=== PATIENT | female | born 1995 | race African-American/Black ===

== ENCOUNTER 2016-12-13 01:12 | Emergency (ER) | payer MEDICAID ==
[~2016-12-13 01:12] MED LIST: FERRCAP6 PO; IBUP600 PO; PREN1CAP17 PO
[2016-12-13 01:14] VITALS: BP 124/77; PULSE 74; RESP 16; TEMP 98.8; O2SAT 100
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
[2016-12-13 02:12] LABS: AUTOMATED NEUTROPHIL # 4.5 TH/MM3 (1.8-7.7); BASOPHIL # 0.1 TH/MM3 (0-0.2); BASOPHIL % 0.7 % (0.0-2.0); EOSINOPHIL % 0.1 % (0.0-4.0); HEMATOCRIT 38.6 % (35.0-46.0); HEMO FLAGS DIFF FINAL; LYMPH % 40.1 % (9.0-44.0); LYMPHOCYTE # 3.3 TH/MM3 (1.0-4.8); MEAN CORPUSCULAR HEMOGLOBIN 23.8 PG (27.0-34.0); MEAN CORPUSCULAR HGB CONC 31.7 % (32.0-36.0); MONO % 5.7 % (0.0-8.0); NEUT % 53.4 % (16.0-70.0); PLATELET COUNT 250 TH/MM3 (150-450); RED BLOOD COUNT 5.14 MIL/MM3 (4.00-5.30); WHITE BLOOD COUNT 8.3 TH/MM3 (4.0-11.0)
[2016-12-13 02:16] LABS: BLOOD, URINE MOD (NEG); GLUCOSE,URINE NEG (NEG); KETONE, URINE 10 mg/dL (NEG); MUCUS URINE FEW /lpf (OCC); NITRITE,URINE NEG (NEG); PH, URINE 6.5 (5.0-8.5); RENAL EPITHELIAL CELLS <1 /hpf; SQUAMOUS EPITHELIAL CELL URINE 1 /hpf (0-5); URINE COLOR YELLOW (YELLW/STRAW)
[2016-12-13 02:17] LABS: COMMENT (UR) CULT NOT INDICATED; CULTURE IF INDICATED CULT NOT INDICATED
[2016-12-13 02:26] LABS: ALT (GPT) 22 U/L (10-53); ANION GAP 10 MEQ/L (5-15); AST (GOT) 21 U/L (15-37); BICARBONATE 25.4 MEQ/L (21.0-32.0); BLOOD UREA NITROGEN 17 MG/DL (7-18); CHLORIDE 105 MEQ/L (98-107); GLOMERULAR FILTRATION RATE 82 ML/MIN (>89); POTASSIUM 3.8 MEQ/L (3.5-5.1); SODIUM (NA) 140 MEQ/L (136-145)
[2016-12-13 02:30] LABS: ALKALINE PHOSPHATASE 96 U/L (45-117); BETA HCG QUANT LESS THAN 1 MIU/ML (0-5); TOTAL BILIRUBIN ADULT 0.6 MG/DL (0.2-1.0)
== END 2016-12-13 03:30 | disposition home or self-care (01) ==
LOC: NEPC 01:12
DX: O26.851 Spotting complicating pregnancy, first trimester (principal)
CPT/HCPCS: 80053; 81001; 84702; 84703; 85025; 86850; 86900; 86901; 99283

== ENCOUNTER 2017-03-13 11:51 | Emergency (ER) | payer MEDICAID ==
[2017-03-13 12:19] VITALS: BP 122/68; PULSE 65; RESP 12; TEMP 98.4; O2SAT 98
[2017-03-13 12:34] LABS: AUTOMATED NEUTROPHIL # 6.2 TH/MM3 (1.8-7.7); BASOPHIL # 0.1 TH/MM3 (0-0.2); BASOPHIL % 0.6 % (0.0-2.0); EOSINOPHIL % 0.2 % (0.0-4.0); HEMATOCRIT 35.5 % (35.0-46.0); HEMO FLAGS DIFF FINAL; MEAN CELL VOLUME 74.9 FL (80.0-100.0); MEAN CORPUSCULAR HEMOGLOBIN 24.1 PG (27.0-34.0); MEAN CORPUSCULAR HGB CONC 32.1 % (32.0-36.0); MONO % 5.1 % (0.0-8.0); NEUT % 63.1 % (16.0-70.0); PLATELET COUNT 234 TH/MM3 (150-450); RED BLOOD COUNT 4.74 MIL/MM3 (4.00-5.30); WHITE BLOOD COUNT 9.8 TH/MM3 (4.0-11.0)
[2017-03-13 12:38] LABS: BLOOD, URINE NEG (NEG); GLUCOSE,URINE NEG (NEG); KETONE, URINE 40 mg/dL (NEG); MUCUS URINE MANY /lpf (OCC); NITRITE,URINE NEG (NEG); SQUAMOUS EPITHELIAL CELL URINE 2 /hpf (0-5); URINE COLOR YELLOW (YELLW/STRAW)
[2017-03-13 12:39] LABS: COMMENT (UR) CULTURE INDICATED; CULTURE IF INDICATED CULTURE INDICATED
[2017-03-13 12:52] LABS: ALT (GPT) 22 U/L (10-53); ANION GAP 8 MEQ/L (5-15); AST (GOT) 17 U/L (15-37); BICARBONATE 24.6 MEQ/L (21.0-32.0); BLOOD UREA NITROGEN 13 MG/DL (7-18); CHLORIDE 105 MEQ/L (98-107); GLOMERULAR FILTRATION RATE 108 ML/MIN (>89); POTASSIUM 3.7 MEQ/L (3.5-5.1); SODIUM (NA) 138 MEQ/L (136-145)
[2017-03-13 13:08] LABS: ALKALINE PHOSPHATASE 77 U/L (45-117); BETA HCG QUANT 65203 MIU/ML (0-5); TOTAL BILIRUBIN ADULT 0.8 MG/DL (0.2-1.0)
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
--- NOTE | 2017-03-13 16:34 | RADRPT ---
EXAM DATE/TIME: 03/13/2017 15:22 [facility] COMPARISON: No previous studies available for comparison. INDICATIONS : Pelvic pain with . LAB(S): Beta-hC,203 MEDICAL HISTORY : . SURGICAL HISTORY : None. ENCOUNTER: Initial ACUITY: 2 days PAIN SCORE: 7/10 LOCATION: Bilateral pelvis MEASUREMENTS: UTERUS: 11.8 x 9.1 x 6.7 cm ENDOMETRIAL STRIPE: 15 mm RIGHT OVARY: 2.2 x 1.4 x 1.4 cm LEFT OVARY: 3.2 x 1.8 x 1.6 cm FREE FLUID: Yes Trace in anterior cul de sac. CROWN RUMP LENGTH: 2.2 cm = 8 WKS 6 DAYS FHR: 172 BPM FINDINGS: UTERUS: The myometrium has homogeneous echotexture without mass. There is a single intrauterine gestation id entified. Gestational sac measures 3.6 x 2.1 x 2.3 cm. Yolk sac and embryo are identified. M-mode Dop pler documents heart rate. There is a small hypoechoic area adjacent to this gestational sac me asuring up to 2 cm. RIGHT OVARY: Ovary contains no mass or significant cystic lesion. LEFT OVARY: Ovary contains no mass or significant cystic lesion. MISCELLANEOUS: There is trace free fluid. CONCLUSION: 1. No acute finding is identified. There is a single intrauterine identified with estimated age of 8 weeks and 6 days. Normal heart rate is documented. 2. Questionable hypoechoic area near the gestational sac could represent small subchorionic hemorrhag jalen Burr MD on March 13, 2017 at 16:30 Board Certified Radiologist. This report was verified electronically.
[2017-03-13] MEDS ORDERED: MACR100C2 PO (16:45)
== END 2017-03-13 18:08 | disposition home or self-care (01) ==
LOC: NEPD 11:51
DX: O20.0 Threatened abortion (principal); S20.212A Contusion of left front wall of thorax, initial encounter; O23.41 Unspecified infection of urinary tract in pregnancy, first trimester; B96.89 Other specified bacterial agents as the cause of diseases classified elsewhere; Z3A.13 13 weeks gestation of pregnancy; Y04.2XXA Assault by strike against or bumped into by another person, initial encounter
CPT/HCPCS: 76700; 80053; 81001; 84702; 84703; 85025; 87086; 99284

== ENCOUNTER 2017-03-26 05:53 | Emergency (ER) | payer MEDICAID ==
[~2017-03-26] VITALS: Ht 154.9 cm; Wt 65.0 kg
[~2017-03-26 05:53] MED LIST changes: -FERRCAP6 PO; -IBUP600 PO; +MACR100C2 PO; -PREN1CAP17 PO
[2017-03-26 05:55] VITALS: BP 132/86; PULSE 114; RESP 16; TEMP 98.6; O2SAT 100
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
[2017-03-26] MEDS ORDERED: ACETAMINOPHEN 325 MG TAB PO ONE (06:45)
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
== END 2017-03-26 07:25 | disposition home or self-care (01) ==
LOC: NEPD 05:53
DX: O9A.211 Injury, poisoning and certain other consequences of external causes complicating pregnancy, first trimester (principal); S82.64XA Nondisplaced fracture of lateral malleolus of right fibula, initial encounter for closed fracture; Y09 Assault by unspecified means; Z3A.10 10 weeks gestation of pregnancy
CPT/HCPCS: 73610; 99285; E0113

== ENCOUNTER 2017-05-18 14:54 | Emergency (ER) | payer MEDICAID ==
[~2017-05-18 14:54] MED LIST changes: +AZIT250T3 PO; -MACR100C2 PO; +METR1TAB76 PO; +PREN1TAB14 PO; +ZITH1POW PO
[2017-05-18] MEDS ORDERED: LACTATED RINGER'S 1000 ML INJ 500 ML IV SCH (16:00)
--- NOTE | 2017-05-18 16:13 | PD ---
HPI Chief Complaint abdominal pain1 day nausea 2 days headaches 2 days Date Seen: May 18, 2017 Time Seen: 15:57 Travel History International Travel<30 Days: No Contact w/Intl Traveler<30Days: No Known Affected Area: No History of Present Illness HPI Pt is a 22 yo at 22 weeks and 5 days. Ultrasound here shows EDC 09-16-2017. Care with Naina Munguia. Pt reports movements. Pt states she had nausea, and vomited x 1 yesterday. Today she note localized bilateral flank pain She reports headaches, and vision changes on standing. She denies fevers, diarrhea or sick contacts. No vaginal bleeding or leaking. Weeks Gestation: 22 Para: 2 : 3 History Past Medical History Narrative Medical anemia Obstetric History Obstetric History x 2 term deliveries. Current complicated by Chlamydia/Trich Past Surgical History Surgical History: No Previous Surgery Family History Family History: Negative Social History Alcohol Use: No Tobacco Use: No Substance Abuse: No Allergies-Medications (Allergen,Severity, Reaction): Coded Allergies: No Known Allergies (Verified Allergy, Unknown, 05/18/17) Home Meds Active Scripts Azithromycin (Azithromycin) 250 Mg Tab, 250 MG PO ONCE for Infection, #4 TAB 0 Refills Take 2 tabs (500 mg) on day 1 then 1 tab daily x 4 days. Prov:Lauren Lopez [facility] 05/02/17 Vit W/ Docusate-Fe Fu (Pnv Ferrous Fumarate/Docu 29-1 mg) 29 Mg Iron-1 Mg-25 Mg Tab, 1 CAPLET PO DAILY for 30 Days, #30 CAPLET 2 Refills Prov:Lauren Lopez [facility] 05/02/17 Metronidazole (Metronidazole) 500 Mg Tab, 500 MG PO BID for Infection, #14 TAB 0 Refills Prov:Abby Munguia [facility] 04/30/17 Azithromycin Powder Packet (Zithromax Powder Packet) 1 Gm Powderpack, 1 GM PO ONCE for Infection, #1 PKT 0 Refills Mix with water according to packet instructions before use. Prov:Abby MunguiaP 04/30/17 Review of Systems Except as stated in HPI: all other systems reviewed are Neg Physical Exam Narrative GENERAL: Well-nourished, well-developed patient. SKIN: Warm and dry. HEAD: Normocephalic and atraumatic. EYES: No scleral icterus. No injection or drainage. ENT: No nasal drainage noted. Mucous membranes pink. Airway patent. NECK: Supple, trachea midline. No JVD. CARDIOVASCULAR: Regular rate and rhythm without murmurs, gallops, or rubs. RESPIRATORY: Breath sounds equal bilaterally. No accessory muscle use. BREASTS: Bilateral exam showed no masses , no retractions, no nipple discharge. ABDOMEN/GI: Abdomen soft, non-tender, bowel sounds present, no rebound, no guarding No CVA tenderness Gravid to [22] weeks size Fundal Height: [-] GENITOURINARY: External Genitalia: intact and normal in appearance BUS glands: [wnl] Cervix: [firm] Dilatation: [closed] Effacement: [long] Station: [high] Presentation: [-] Membranes: [intact] Uterine Contractions: [none] FHT's: Category: [-] Baseline: [150s] Doppler Reactive: [-] Variability: [-] Decels: [-] EXTREMITIES: No cyanosis or edema. BACK: Nontender without obvious deformity. No CVA tenderness. NEUROLOGICAL: Awake and alert. Motor and sensory grossly within normal limits. Five out of 5 muscle strength in all muscle groups. Normal speech. Data Data Vital Signs Reviewed: Yes MDM Plan 22 yo presents at 22 weeks and 5 days with flank pain, headaches, nausea. Will check CBC/BMP status reassuring. UA wnl Pt reports feeling better after Zofran and IVF. Will discharge home. Pt has office appointment tomorrow. Diagnosis Diagnosis: Primary Impression: 22 weeks gestation of Additional Impressions: Abdominal pain affecting Headache in , antepartum Disposition: DISCHARGE HOME Condition: Good Scripts Ondansetron Odt (Zofran Odt) 4 Mg Tab 4 MG SL Q8HR Y for Nausea/Vomiting, #30 TAB 0 Refills Prov: Bhavesh Espitia MD 05/18/17 Bhavesh Espitia MD May 18, 2017 16:13
[2017-05-18] MEDS ORDERED: ACETAMINOPHEN 325 MG TAB PO ONE (16:30)
[2017-05-18] MEDS ORDERED: ONDANSETRON ODT 4 MG TAB PO ONE (16:30)
[2017-05-18 16:31] LABS: HEMATOCRIT 34.8 % (35.0-46.0); HEMOGLOBIN 11.4 GM/DL (11.6-15.3); MEAN CORPUSCULAR HEMOGLOBIN 25.2 PG (27.0-34.0); MEAN CORPUSCULAR HGB CONC 32.7 % (32.0-36.0); MEAN PLATELET VOLUME 9.6 FL (7.0-11.0); PLATELET COUNT 197 TH/MM3 (150-450); RED BLOOD COUNT 4.52 MIL/MM3 (4.00-5.30); RED CELL DISTRIBUTION WIDTH 15.5 % (11.6-17.2); WHITE BLOOD COUNT 10.4 TH/MM3 (4.0-11.0)
[2017-05-18 16:38] LABS: BACTERIA, URINE RARE /hpf; BILIRUBIN, URINE NEG (NEG); BLOOD, URINE NEG (NEG); GLUCOSE,URINE NEG (NEG); KETONE, URINE NEG (NEG); NITRITE,URINE NEG (NEG); SQUAMOUS EPITHELIAL CELL URINE 5 /hpf (0-5); URINE COLOR COLORLESS (YELLW/STRAW); URINE LEUKOCYTE ESTERASE NEG (NEG)
[2017-05-18 16:50] VITALS: PULSE 85
[2017-05-18 16:54] VITALS: RESP 17
[2017-05-18 16:55] LABS: BICARBONATE 27.7 MEQ/L (21.0-32.0); CALCIUM 9.1 MG/DL (8.5-10.1); CREATININE 0.72 MG/DL (0.50-1.00)
[2017-05-18] MEDS ORDERED: ZOFR4TAB3 SL (18:37)
== END 2017-05-18 19:00 | disposition home or self-care (01) ==
LOC: HOBED 14:54
DX: O26.892 Other specified pregnancy related conditions, second trimester (principal); R10.9 Unspecified abdominal pain; R51 Headache; R11.2 Nausea with vomiting, unspecified; Z3A.22 22 weeks gestation of pregnancy
CPT/HCPCS: 80048; 81001; 85027; 99284; J7120

== ENCOUNTER 2017-09-23 12:59 | Observation (INO) | payer MEDICAID ==
[~2017-09-23 12:59] MED LIST changes: -AZIT250T3 PO; +ZOFR4TAB3 SL
[2017-09-23] MEDS ORDERED: LACTATED RINGER'S 1000 ML INJ 1,000 ML IV SCH (14:19)
--- NOTE | 2017-09-23 14:19 | HHI.HP ---
HPI Chief Complaint Vaginal pain and pelvic pressure Date Seen: September 23, 2017 Time Seen: 14:00 Travel History International Travel<30 Days: No Contact w/Intl Traveler<30Days: No Known Affected Area: No History of Present Illness HPI 22-year-old black female 36 weeks by 9 week ultrasound done here with very little almost no care after that. He now presents with vaginal pain and pressure. heart rate is reactive she is having occasional contractions. No bleeding or leakage of fluid. UA dip on OB ED that showed 2+ proteinuria [100 ] Weeks Gestation: 36 Para: 2 : 3 History Obstetric History Obstetric History No regular care but did have a 9 week ultrasound Social History Alcohol Use: No Tobacco Use: No Substance Abuse: No Allergies-Medications (Allergen,Severity, Reaction): Coded Allergies: No Known Allergies (Verified Allergy, Unknown, 05/19/17) Home Meds Active Scripts Ondansetron Odt (Zofran Odt) 4 Mg Tab, 4 MG SL Q8HR Y for Nausea/Vomiting, #30 TAB 0 Refills Prov:Bhavesh Espitia MD 05/18/17 Vit W/ Docusate-Fe Fu (Pnv Ferrous Fumarate/Docu 29-1 mg) 29 Mg Iron-1 Mg-25 Mg Tab, 1 CAPLET PO DAILY for 30 Days, #30 CAPLET 2 Refills Prov:Lauren Lopez CNM [facility] 05/02/17 Metronidazole (Metronidazole) 500 Mg Tab, 500 MG PO BID for Infection, #14 TAB 0 Refills Prov:Abby Munguia [facility] 04/30/17 Azithromycin Powder Packet (Zithromax Powder Packet) 1 Gm Powderpack, 1 GM PO ONCE for Infection, #1 PKT 0 Refills Mix with water according to packet instructions before use. Prov:Abby Munguia [facility] 04/30/17 Review of Systems General / Constitutional: No: Fever, Weight Gain, Chills, Other Eyes: No: Diploplia, Blurred Vision, Visual changes, Pain, Photophobia HENT: No: Headaches, Vertigo, Lightheadedness Cardiovascular: No: Irregular Rhythm, Chest Pain or Discomfort, Palpitations, Tachycardia, Syncope, Varicosities, Edema, Cyanosis Respiratory: No: Cough, Short of Breath, Other Gastrointestinal: Abdominal Pain, No: Nausea, Vomiting, Diarrhea Genitourinary: Pelvic Pain, No: Decreased Urinary Output, Oliguria Musculoskeletal: No: Limited ROM, Weakness, Cramping, Edema, Pain Skin: No Rash, No Itching, No Dryness, No Lumps, No Change in Pigmentation, No Change in Nails, No Alopecia, No Lesions Neurologic: No: Weakness, Dizziness, Syncope, Focal Abnormalities, Coordination Problem, Headache, Slurred Speech, Seizures Psychiatric: No: Depression, Suicidal Ideations, Homicidal Ideation Endocrine: No: Heat Intolerance, Cold Intolerance, Polydipsia, Polyuria, Other Physical Exam Narrative GENERAL: Well-nourished, well-developed patient. SKIN: Warm and dry. HEAD: Normocephalic and atraumatic. EYES: No scleral icterus. No injection or drainage. ENT: No nasal drainage noted. Mucous membranes pink. Airway patent. NECK: Supple, trachea midline. No JVD. CARDIOVASCULAR: Regular rate and rhythm without murmurs, gallops, or rubs. RESPIRATORY: Breath sounds equal bilaterally. No accessory muscle use. BREASTS: Bilateral exam showed no masses , no retractions, no nipple discharge. ABDOMEN/GI: Abdomen soft, non-tender, bowel sounds present, no rebound, no guarding Gravid to [36-] weeks size Fundal Height: [36-] GENITOURINARY: External Genitalia: intact and normal in appearance BUS glands: [-] Cervix: [post-] Dilatation: [1-2-] Effacement: [thick-] Station: [-3] Presentation: [-vtx] Membranes: [intact ] Uterine Contractions: [irreg-] FHT's: Category: [1-] Baseline: [-133] Reactive: [R-] Variability: [-mod] Decels: [-0] EXTREMITIES: No cyanosis or edema. BACK: Nontender without obvious deformity. No CVA tenderness. NEUROLOGICAL: Awake and alert. Motor and sensory grossly within normal limits. Five out of 5 muscle strength in all muscle groups. Normal speech. Caprini VTE Risk Assessment Caprini VTE Risk Assessment: No/Low Risk (score <= 1) Caprini Risk Assessment Model Point Value = 1 Point Value = 2 Point Value = 3 Point Value = 5 Age 41-60 Minor surgery BMI > 25 kg/m2 Swollen legs Varicose veins or History of unexplained or recurrent spontaneous Oral contraceptives or hormone replacement Sepsis (< 1 month) Serious lung disease, including pneumonia (< 1 month) Abnormal pulmonary function Acute myocardial infarction Congestive heart failure (< 1 month) History of inflammatory bowel disease Medical patient at bed rest Age 61-74 Arthroscopic surgery Major open surgery (> 45 min) Laparoscopic surgery (> 45 min) Malignancy Confined to bed (> 72 hours) Immobilizing plaster cast Central venous access Age >= 75 History of VTE Family history of VTE Factor V Leiden Prothrombin [id number] Lupus anticoagulant Anticardiolipin antibodies Elevated serum homocysteine Heparin-induced thrombocytopenia Other congenital or acquired thrombophilia Stroke (< 1 month) Elective arthroplasty Hip, pelvis, or leg fracture Acute spinal cord injury (< 1 month) Prophylaxis Regimen Total Risk Factor Score Risk Level Prophylaxis Regimen 0-1 Low Early ambulation 2 Moderate Order ONE of the following: *Sequential Compression Device (SCD) *Heparin 5000 units SQ BID 3-4 Higher Order ONE of the following medications: *Heparin 5000 units SQ TID *Enoxaparin/Lovenox 40 mg SQ daily (WT < 150 kg, CrCl > 30 mL/min) *Enoxaparin/Lovenox 30 mg SQ daily (WT < 150 kg, CrCl > 10-29 mL/min) *Enoxaparin/Lovenox 30 mg SQ BID (WT < 150 kg, CrCl > 30 mL/min) AND/OR *Sequential Compression Device (SCD) 5 or more Highest Order ONE of the following medications: *Heparin 5000 units SQ TID (Preferred with Epidurals) *Enoxaparin/Lovenox 40 mg SQ daily (WT < 150 kg, CrCl > 30 mL/min) *Enoxaparin/Lovenox 30 mg SQ daily (WT < 150 kg, CrCl > 10-29 mL/min) *Enoxaparin/Lovenox 30 mg SQ BID (WT < 150 kg, CrCl > 30 mL/min) AND *Sequential Compression Device (SCD) Data Data Orders Orders Ob (2e) Additional Admit Info (09/23/17 13:56) Ob (2e) Additional Admit Info (09/23/17 14:05) Labs Urine dip on OB ED is negative for infection with positive proteinuria approximately 2+ Assessment/Plan Assessment and Plan Patient is 22-year-old black female 36 weeks with very little to no care now presenting with pelvic pain and pressure. She is not in labor at this time however her urine dip done routinely on OB ED showed 2+ proteinuria she has no history of kidney disease or infection or UTI Plan-admit for 23 hour observation collect 24-hour urine protein, protein creatinine ratio, PIH serum lab, observe and check blood pressures. If patient is stable at the end of that time consider discharge home to increased bed rest and follow-up as an outpatient Mario Dickens II, MD September 23, 2017 14:19
[2017-09-23] MEDS ORDERED: CALCIUM GLUCONATE 10% 1 GM/10 ML VIAL IV PUSH PRN (14:30)
[2017-09-23] MEDS ORDERED: SODIUM CHLORIDE 0.9% FLUSH 10 ML FLUSH IV FLUSH PRN (14:30)
[2017-09-23 15:38] LABS: BACTERIA, URINE OCC /hpf; BILIRUBIN, URINE NEG (NEG); BLOOD, URINE NEG (NEG); GLUCOSE,URINE NEG (NEG); KETONE, URINE NEG (NEG); MUCUS URINE FEW /lpf (OCC); NITRITE,URINE NEG (NEG); SQUAMOUS EPITHELIAL CELL URINE 2 /hpf (0-5); URINE COLOR YELLOW (YELLW/STRAW); URINE LEUKOCYTE ESTERASE LARGE (NEG)
[2017-09-23 16:01] LABS: AUTOMATED NEUTROPHIL # 7.6 TH/MM3 (1.8-7.7); BASOPHIL % 0.2 % (0.0-2.0); EOSINOPHIL % 0.1 % (0.0-4.0); HEMOGLOBIN 9.3 GM/DL (11.6-15.3); LYMPH % 23.1 % (9.0-44.0); LYMPHOCYTE # 2.4 TH/MM3 (1.0-4.8); MEAN CELL VOLUME 75.4 FL (80.0-100.0); MEAN CORPUSCULAR HEMOGLOBIN 24.3 PG (27.0-34.0); MEAN CORPUSCULAR HGB CONC 32.2 % (32.0-36.0); MEAN PLATELET VOLUME 11.1 FL (7.0-11.0); MONOCYTE # 0.5 TH/MM3 (0-0.9); NEUT % 71.6 % (16.0-70.0); PLATELET COUNT 175 TH/MM3 (150-450); RED BLOOD COUNT 3.85 MIL/MM3 (4.00-5.30); RED CELL DISTRIBUTION WIDTH 14.9 % (11.6-17.2); WHITE BLOOD COUNT 10.6 TH/MM3 (4.0-11.0)
[2017-09-23 16:16] LABS: ALBUMIN 2.6 GM/DL (3.4-5.0); ALT (GPT) 13 U/L (10-53); AST (GOT) 19 U/L (15-37); BICARBONATE 22.9 MEQ/L (21.0-32.0); BLOOD UREA NITROGEN 6 MG/DL (7-18); CALCIUM 8.7 MG/DL (8.5-10.1); CHLORIDE 106 MEQ/L (98-107); CREATININE 0.84 MG/DL (0.50-1.00); GLOMERULAR FILTRATION RATE 103 ML/MIN (>89); GLUCOSE,RANDOM 73 MG/DL (74-106); SODIUM (NA) 139 MEQ/L (136-145)
[2017-09-23 16:18] LABS: ALKALINE PHOSPHATASE 268 U/L (45-117); TOTAL BILIRUBIN ADULT 0.6 MG/DL (0.2-1.0)
[2017-09-23] MEDS ORDERED: ACETAMINOPHEN 325 MG TAB PO PRN (17:00)
[2017-09-23] MEDS ORDERED: SODIUM CHLORIDE 0.9% FLUSH 10 ML FLUSH IV FLUSH SCH (21:00)
[2017-09-23] MEDS: SULFAMETHOXAZOLE-TRIMETHOPRIM DS 800-160 MG TAB PO SCH (21:00)
--- NOTE | 2017-09-24 09:13 | PD.OB.ANTE ---
Subjective Interval History Patient seen and examined this morning. Patient endorses irregular contractions. Reports positive movements. Denies leakage of fluid or vaginal bleeding. Afebrile. BPs ranging 110s-140s/60s-80s. Antepartum ROS: Reports: movement normal, Contractions (Irregular), Denies: New complaints, Loss of fluid, Vaginal bleeding Objective Lab & Micro Results Test 09/23/17 14:19 09/23/17 15:00 Urine Color YELLOW Urine Turbidity CLEAR Urine pH 7.0 Urine Specific [place] 1.019 Urine Protein 30 mg/dL Urine Glucose (UA) NEG mg/dL Urine Ketones NEG mg/dL Urine Occult Blood NEG Urine Nitrite NEG Urine Bilirubin NEG Urine Urobilinogen 2.0 MG/DL Urine Leukocyte Esterase LARGE Urine RBC 2 /hpf Urine WBC 16 /hpf Urine Squamous Epithelial Cells 2 /hpf Urine Bacteria OCC /hpf Urine Mucus FEW /lpf Microscopic Urinalysis Comment CATH-CULTURE IND Urine Random Creatinine 286 MG/DL Urine Random Total Protein 69 MG/DL Urine Protein/Creatinine Ratio 0.24 Urine Opiates Screen NEG Urine Barbiturates Screen NEG Urine Amphetamines Screen NEG Urine Benzodiazepines Screen NEG Urine Cocaine Screen NEG Urine Cannabinoids Screen POS Chlamydia trachomatis DNA (PCR) NOT DETECTED Neisseria gonorrhoeae DNA (PCR) NOT DETECTED White Blood Count 10.6 TH/MM3 Red Blood Count 3.85 MIL/MM3 Hemoglobin 9.3 GM/DL Hematocrit 29.0 % Mean Corpuscular Volume 75.4 FL Mean Corpuscular Hemoglobin 24.3 PG Mean Corpuscular Hemoglobin Concent 32.2 % Red Cell Distribution Width 14.9 % Platelet Count 175 TH/MM3 Mean Platelet Volume 11.1 FL Neutrophils (%) (Auto) 71.6 % Lymphocytes (%) (Auto) 23.1 % Monocytes (%) (Auto) 5.0 % Eosinophils (%) (Auto) 0.1 % Basophils (%) (Auto) 0.2 % Neutrophils # (Auto) 7.6 TH/MM3 Lymphocytes # (Auto) 2.4 TH/MM3 Monocytes # (Auto) 0.5 TH/MM3 Eosinophils # (Auto) 0.0 TH/MM3 Basophils # (Auto) 0.0 TH/MM3 CBC Comment DIFF FINAL Differential Comment Blood Urea Nitrogen 6 MG/DL Creatinine 0.84 MG/DL Random Glucose 73 MG/DL Total Protein 7.0 GM/DL Albumin 2.6 GM/DL Calcium Level 8.7 MG/DL Uric Acid 6.8 MG/DL Alkaline Phosphatase 268 U/L Aspartate Amino Transf (AST/SGOT) 19 U/L Alanine Aminotransferase (ALT/SGPT) 13 U/L Total Bilirubin 0.6 MG/DL Sodium Level 139 MEQ/L Potassium Level 4.0 MEQ/L Chloride Level 106 MEQ/L Carbon Dioxide Level 22.9 MEQ/L Anion Gap 10 MEQ/L Estimat Glomerular Filtration Rate 103 ML/MIN Hepatitis A IgM Antibody NONREACTIVE Hepatitis B Surface Antigen NONREACTIVE Hepatitis B Core IgM Antibody NONREACTIVE Hepatitis C IgG Antibody NONREACTIVE HIV (1&2) Ab and P24 Ag, 4th Gener NONREACTIVE Rubella Immunity Screen IMMUNE Rubella Antibody, Quantitative 255.2 IU/mL Group B Streptococcus (PCR) POSITIVE Date/Time Source Procedure Growth Status 09/23/17 14:19 Urine Catheterized Urine Urine Culture Pending Received Physical Exam GENERAL: Well-nourished, well-developed patient. CARDIOVASCULAR: Regular rate and rhythm without murmurs, gallops, or rubs. RESPIRATORY: Breath sounds equal bilaterally. No accessory muscle use. ABDOMEN/GI: Abdomen soft, non-tender. Fundus: [-] GENITOURINARY: External Genitalia: [-] Cervix: [-] Dilatation: [-] Effacement: [-] Station: [-] Presentation: [-] Membranes: [-] Uterine Contractions: Irregular FHT's: Category: I Baseline: 130s Reactive: +accels Variability: moderate Decels: none noted EXTREMITIES: No cyanosis or edema, non-tender, without signs of DVT. Assessment and Plan Assessment and Plan Patient is 22-year-old female 36/5 weeks with very little to no care presented with pelvic pain and pressure. Her urine dip done routinely on OB ED showed 2+ proteinuria she has no history of kidney disease or infection or UTI - Patient admitted to 23 hour observation - 24-hour urine protein pending, will result this afternoon - Protein / creatinine ratio 0.24 - Blood pressures stable - labs ordered - Anticipate discharge home today pending stable blood pressures and after 24 hour urine protein results - Will instruct patient to continue close follow up with her OB provider as an outpatient sdw Kevin Farfan MD R2 September 24, 2017 09:13
[2017-09-24] MEDS: SULFAMETHOXAZOLE-TRIMETHOPRIM DS 800-160 MG TAB PO SCH (14:42)
[2017-09-24 14:50] LABS: CREATININE 24 HOUR, URINE 1.4 GM/24HR (0.63-2.50)
[2017-09-24] MEDS ORDERED: BACT800T5 PO (15:09)
--- NOTE | 2017-09-24 15:14 | HHI.DCPOC ---
Discharge Care Plan Diagnosis: (1) Proteinuria Report Symptoms to Your Doctor -Temperature above 100.5 degrees -Redness, of incision or excessive or foul smelling drainage -Unusual pain or calf pain -Increased vaginal bleeding -Painful or difficulty urinating -Feelings of extreme sadness or anxiety after 2 weeks Goals to Promote Your Health * To maintain your health at the optimal level, follow-up with an OB provider within 1 week after hospital discharge. Directions to Meet Your Goals Take your medications as prescribed Follow your dietary instruction Follow activity as directed Ensure plenty of rest for recovery Drink fluids for hydration Keep your appointments as scheduled Take your immunizations and boosters as scheduled If your symptoms worsen call your PCP, if no PCP go to Urgent Care Center or Emergency Room Smoking is Dangerous to Your Health. Avoid second hand smoke Call the 24-hour crisis hotline for domestic abuse at Kevin Fitzpatrick MD R2 September 24, 2017 15:14
== END 2017-09-24 15:44 | disposition home or self-care (01) ==
LOC: HOBED 12:59 → UNDOADMIN 13:58 → H2EB 13:58 → H2EA 14:05 → UNDOADMIN 14:06 → H2EA 14:06 → UNDOADMIN 14:07 → H2EB 14:32
PROVIDERS: ADMIT Obstetrics & Gynecology Maternal & Fetal Medicine; ATTEND Obstetrics & Gynecology Maternal & Fetal Medicine
DX: O12.13 Gestational proteinuria, third trimester (principal); Z3A.36 36 weeks gestation of pregnancy; R10.2 Pelvic and perineal pain; Z91.19 Patient's noncompliance with other medical treatment and regimen
CPT/HCPCS: 59025; 76816; 76819; 80053; 80074; 80307; 81001; 82570; 84156; 84157; 84550; 85025; 86592; 86703; 86762; 86850; 86900; 86901; 87086; 87150; 87491; 87591; 99285; G0378; G0481

== ENCOUNTER 2017-10-03 09:54 | Emergency (ER) | payer MEDICAID ==
[~2017-10-03 09:54] MED LIST changes: +BACT800T5 PO; -METR1TAB76 PO; -PREN1TAB14 PO; -ZITH1POW PO; -ZOFR4TAB3 SL
--- NOTE | 2017-10-03 10:32 | PD ---
HPI Chief Complaint Contractions, spotting Date Seen: Oct 03, 2017 (Kevin Fitzpatrick MD R2) Travel History International Travel<30 Days: No Contact w/Intl Traveler<30Days: No Known Affected Area: No (Kevin Fitzpatrick MD R2) History of Present Illness HPI The patient is a 22 year old at 38 weeks gestation presents to OB triage with complaints of contractions and spots of blood on toilet paper she noticed last night. The patient reports late last night she noticed spots of blood on toilet paper when wiping. She states she wiped several times and each time the spots of blood lessened. She denies further vaginal bleeding since then. She reports her contractions as irregular, not intensifying in nature. Denies leakage of loss of fluid. Endorses + movements. She denies any fevers or chills or urinary complaints. Para: 2 : 3 (Kevin Fitzpatrick MD R2) History Past Medical History Narrative Medical Reportedly healthy Medical History: Denies Significant Hx (Kevin Fitzpatrick MD R2) Obstetric History Obstetric History Two prior term vaginal deliveries (Kevin Fitzpatrick MD R2) Past Surgical History Surgical History: No Previous Surgery (Kevin Fitzpatrick MD R2) Family History Family History: Negative (Kevin Fitzpatrick MD R2) Social History Alcohol Use: No Tobacco Use: No Substance Abuse: No (Kevin Fitzpatrick MD R2) Allergies-Medications (Allergen,Severity, Reaction): Coded Allergies: No Known Allergies (Verified Allergy, Unknown, 09/23/17) Home Meds Active Scripts Sulfamethoxazole-Trimethoprim (Bactrim DS) 800-160 Mg Tab, 1 TAB PO BID for Infection, #5 TAB 0 Refills Prov:Kevin Fitzpatrick MD R2 09/24/17 Review of Systems Except as stated in HPI: all other systems reviewed are Neg (Kevin Fitzpatrick MD R2) Physical Exam Narrative GENERAL: Well-nourished, well-developed patient. SKIN: Warm and dry. HEAD: Normocephalic and atraumatic. EYES: No scleral icterus. No injection or drainage. ENT: No nasal drainage noted. Mucous membranes pink. Airway patent. NECK: Supple, trachea midline. No JVD. CARDIOVASCULAR: Regular rate and rhythm without murmurs, gallops, or rubs. RESPIRATORY: Breath sounds equal bilaterally. No accessory muscle use. ABDOMEN/GI: Abdomen soft, non-tender, bowel sounds present, no rebound, no guarding Gravid to 38 weeks size GENITOURINARY (performed by Dr. Cameron with female buhr dresser present in examination room): External Genitalia: intact and normal in appearance Cervix: posterior Dilatation: 1cm Effacement: 40% Station: -3 Presentation: [-] Membranes: [-] Uterine Contractions: Irregular on tocometer FHT's: Category: I Baseline: 140s Reactive: +accels Variability: moderate Decels: none noted EXTREMITIES: No cyanosis or edema. BACK: Nontender without obvious deformity. No CVA tenderness. NEUROLOGICAL: Awake and alert. Motor and sensory grossly within normal limits. Normal speech. (Kevin Fitzpatrick MD R2) Data Data Vital Signs Reviewed: Yes (Kevin Fitzpatrick MD R2) [facility] Medical Record Reviewed: Yes Plan 22 year old at 38 weeks gestation evaluated in OB triage with reports of contractions and spots of blood on toilet paper she noticed last night that have since resolved and with no further recurrence. - Category I tracing - Irregular contractions on tocometer - No reported leakage of fluid. + movements - Cervix: 1/40/-3, posterior - Labor precautions discussed with patient and patient was instructed on si/sxs that would warrant a return visit to OB triage for reevaluation sdw Dr. Cameron (Kevin Fitzpatrick MD R2) Attending Attestation Patient seen and evaluated with resident under direct supervision, agree with assessment and plan. (Tomas Cameron MD) Diagnosis Diagnosis: Primary Impression: 38 weeks gestation of Disposition: DISCHARGE HOME Condition: Stable Patient Instructions: General Instructions, Early Labor Signs (ED) Kevin Fitzpatrick MD R2 Oct 03, 2017 10:32 Tomas Cameron MD Oct 03, 2017 14:22
== END 2017-10-03 10:56 | disposition home or self-care (01) ==
LOC: HOBED 09:54
DX: O62.9 Abnormality of forces of labor, unspecified (principal); Z3A.38 38 weeks gestation of pregnancy
CPT/HCPCS: 59025

== ENCOUNTER 2017-10-03 22:22 | Inpatient (IN) | payer MEDICAID ==
[~2017-10-03 22:22] MED LIST changes: +DIPHTH/TETANUS/ACEL PERTUSSIS (BOOSTER) 0.5 ML VIAL/PFS IM ONE; +MEASLES, MUMPS, RUBELLA VACCINE 0.5 ML VIAL SQ ONE
[2017-10-03] MEDS ORDERED: LACTATED RINGER'S 1000 ML INJ 1,000 ML IV PRN (23:01)
[2017-10-03] MEDS ORDERED: LACTATED RINGER'S 1000 ML INJ 1,000 ML IV SCH (23:01)
--- NOTE | 2017-10-03 23:14 | PD ---
HPI Chief Complaint Contractions Date Seen: Oct 03, 2017 (Kevin Fitzpatrick MD R2) Travel History International Travel<30 Days: No Contact w/Intl Traveler<30Days: No Known Affected Area: No (Kevin Fitzpatrick MD R2) History of Present Illness HPI The patient is a 22 year old at 38 weeks gestation who presents to OB triage with complaints of contractions. She states they have become more intense and more regular occurring about every 4-5 minutes. She denies any leakage or gush of fluid. Endorses positive movements. The patient also reports some spotting since being discharged earlier today. She denies any heavy vaginal bleeding or abdominal or pelvic pain. Endorses pelvic pressure. Denies urinary complaints. She is GBS positive. Para: 2 : 3 (Kevin Fitzpatrick MD) History Past Medical History Medical History: Denies Significant Hx (Kevin Fitzpatrick MD R2) Obstetric History Obstetric History Two prior term vaginal deliveries (Kevin Fitzpatrick MD) Past Surgical History Surgical History: No Previous Surgery (Kevin Fitzpatrick MD) Family History Family History: Negative (Kevin Fitzpatrick MD) Social History Alcohol Use: No Tobacco Use: No Substance Abuse: No (Kevin Fitzpatrick MD) Allergies-Medications (Allergen,Severity, Reaction): Coded Allergies: No Known Allergies (Verified Allergy, Unknown, 09/23/17) Home Meds Active Scripts Sulfamethoxazole-Trimethoprim (Bactrim DS) 800-160 Mg Tab, 1 TAB PO BID for Infection, #5 TAB 0 Refills Prov:Kevin Fitzpatrick MD 09/24/17 Review of Systems Except as stated in HPI: all other systems reviewed are Neg (Kevin Fitzpatrick MD R2) Physical Exam Narrative GENERAL: Well-nourished, well-developed patient. SKIN: Warm and dry. HEAD: Normocephalic and atraumatic. EYES: No scleral icterus. No injection or drainage. ENT: No nasal drainage noted. Mucous membranes pink. Airway patent. NECK: Supple, trachea midline. No JVD. CARDIOVASCULAR: Regular rate and rhythm without murmurs, gallops, or rubs. RESPIRATORY: Breath sounds equal bilaterally. No accessory muscle use. BREASTS: Bilateral exam showed no masses , no retractions, no nipple discharge. ABDOMEN/GI: Abdomen soft, non-tender, bowel sounds present, no rebound, no guarding Gravid to 38 weeks size GENITOURINARY: External Genitalia: intact and normal in appearance Cervix: Anterior Dilatation: 4-5cm Effacement: 90% Station: -1 Presentation: [-] Membranes: bulging Uterine Contractions: q2-5 minutes FHT's: Category: I Baseline: 140s Reactive: +accels Variability: moderate Decels: none noted EXTREMITIES: No cyanosis or edema. BACK: Nontender without obvious deformity. No CVA tenderness. NEUROLOGICAL: Awake and alert. Motor and sensory grossly within normal limits. Normal speech. (Kevin Fitzpatrick MD R2) Data Data Vital Signs Reviewed: Yes Orders Orders Ob (2e) Additional Admit Info (10/03/17 22:50) Admit To Inpatient (10/03/17 ) Code Status (10/03/17 23:01) Vital Signs (Adult) .Per protocol (10/03/17 23:01) Activity Oob Ad Carlee (10/03/17 23:01) Heart (10/03/17 23:01) Amnioinfusion (10/03/17 23:01) Urinary Catheter Management .ONCE (10/03/17 23:01) Diet Liquid (10/04/17 Breakfast) Lactated Ringer's 1000 Ml Inj (Lr 1000 M (10/03/17 23:01) Lactated Ringer's 1000 Ml Inj (Lr 1000 M (10/03/17 23:01) Sodium Chlorid 0.9% 500 Ml Inj (Ns 500 M (10/03/17 23:15) Sodium Chlor 0.9% 1000 Ml Inj (Ns 1000 M (10/03/17 23:21) Lidocaine 1% Inj (50 Ml) (Xylocaine 1% I (10/03/17 23:15) Citric Acid-Sodium Citrate Liq (Bicitra (10/03/17 23:15) Fentanyl Inj (Fentanyl Inj) (10/03/17 23:15) Fentanyl Inj (Fentanyl Inj) (10/03/17 23:15) Penicillin G Potassium Inj (Pfizerpen-G (10/03/17 23:15) Penicillin G Potassium Inj (Pfizerpen-G (10/04/17 03:15) Complete Blood Count With Diff (10/03/17 23:01) Hold Clot (10/03/17 23:01) Abo/Rh Blood Type (10/03/17 23:01) Urinalysis - C+S If Indicated (10/03/17 23:01) Ob/Psych Drug Screen, Urine (10/03/17 23:01) Resp Oxygen Non Rebreathe Mask (10/03/17 ) ^ Epidural / Intrathecal Infus (10/03/17 23:01) Oxytocin 30 Units-500ml Premix (Pitocin (10/03/17 23:15) Lidocaine 1% Inj (50 Ml) (Xylocaine 1% I (10/03/17 23:15) Light Mineral Oil (Muri-Lube Oil) (10/03/17 23:15) Inpatient Certification (10/03/17 ) Specimen To Be Collected PRN (10/03/17 23:01) Group B Strep: Positive (Kevin Fitzpatrick MD R2) MDM Medical Record Reviewed: Yes Plan 22 year old at 38 weeks gestation being admitted in active labor. 1. IUP - Category I tracing - Contractions q2-5 minutes on tocometer - Cervix: 4-5/90/-1 - GBS positive, start PCN per protocol for prophylaxis - Patient desiring epidural - Anticipate AROM after administration of antibiotics for GBS ppx are adequate - Continue expectant management (Kevin Fitzpatrick MD R2) Attending Attestation Patient seen and evaluated with resident under direct supervision, agree with assessment and plan. (Tomas Cameron MD) Kevin Fitzpatrick MD R2 Oct 03, 2017 23:14 Tomas Cameron MD Oct 05, 2017 16:36
[2017-10-03] MEDS ORDERED: OXYTOCIN 30 UNITS-500ML PREMIX 500 ML IV ONE (23:15)
[2017-10-03] MEDS ORDERED: LIDOCAINE HCL 1% 50 ML VIAL INFIL PRN (23:15)
[2017-10-03] MEDS ORDERED: MINERAL OIL 10 ML VIAL TOPICAL PRN (23:15)
[2017-10-03] MEDS ORDERED: PENICILLIN G POTASSIUM INJ 5,000,000 UNITS in SODIUM CHLORIDE 0.9% INJ 100 ML IV ONE (23:15)
[2017-10-03] MEDS ORDERED: CITRIC ACID-SODIUM CITRATE LIQ 30 ML UDC PO SCH (23:15)
[2017-10-03] MEDS ORDERED: LIDOCAINE HCL 1% 50 ML VIAL I-DERMAL PRN (23:15)
[2017-10-03] MEDS ORDERED: SODIUM CHLORID 0.9% 500 ML INJ 500 ML IV PRN (23:15)
[2017-10-03] MEDS ORDERED: SODIUM CHLOR 0.9% 1000 ML INJ 1,000 ML IV PRN (23:21)
[2017-10-03 23:28] LABS: BASOPHIL % 0.3 % (0.0-2.0); EOSINOPHIL % 0.1 % (0.0-4.0); HEMATOCRIT 28.8 % (35.0-46.0); HEMOGLOBIN 9.3 GM/DL (11.6-15.3); LYMPH % 20.3 % (9.0-44.0); LYMPHOCYTE # 2.5 TH/MM3 (1.0-4.8); MEAN CELL VOLUME 72.5 FL (80.0-100.0); MEAN CORPUSCULAR HEMOGLOBIN 23.5 PG (27.0-34.0); MEAN CORPUSCULAR HGB CONC 32.4 % (32.0-36.0); MEAN PLATELET VOLUME 10.7 FL (7.0-11.0); MONO % 5.7 % (0.0-8.0); MONOCYTE # 0.7 TH/MM3 (0-0.9); NEUT % 73.6 % (16.0-70.0); PLATELET COUNT 182 TH/MM3 (150-450); RED BLOOD COUNT 3.97 MIL/MM3 (4.00-5.30); RED CELL DISTRIBUTION WIDTH 15.2 % (11.6-17.2); WHITE BLOOD COUNT 12.2 TH/MM3 (4.0-11.0)
--- NOTE | 2017-10-03 23:42 | PD.OB.DELI ---
Weeks gestation: 38 Gest age assessed date: Oct 03, 2017 Pt started active labor?: Yes Medical induction of labor?: No Artificial rupture of membrane: No Anesthesia: None Episiotomy: None Vaginal Delivery: Normal, Spontaneous Presentation: Occiput anterior, Vertex Nuchal Cord: x1 Delayed cord clamping (45 sec): Yes : Female Delivery date: Oct 03, 2017 Delivery time: 23:29 One Minute : 7 Five Minute : 9 Weight: 2705g Placenta: Spontaneous delivery, Intact, 3 vessel cord Laceration: No lacerations Estimated blood loss: 100 mL Additional Information Large amount of meconium noted at delivery. Nuchal cord x1, reduced. Precipitous delivery. (Salima Wilcox MD R1) Salima Wilcox MD R1 Oct 03, 2017 23:41 Tomas Cameron MD Oct 05, 2017 16:38
[2017-10-03] MEDS ORDERED: OXYTOCIN 30 UNITS-500ML PREMIX 500 ML IV SCH (23:45)
[2017-10-03] MEDS ORDERED: ONDANSETRON ODT 4 MG TAB PO PRN (23:45)
[2017-10-03] MEDS ORDERED: oxyCODONE/ACETAMINOPHEN 5 MG/325 MG TAB PO PRN ×2 (23:45)
[2017-10-03] MEDS ORDERED: WITCH HAZEL 50%/GLYCERIN 12.5% 40 PAD JAR TOPICAL PRN (23:45)
[2017-10-03] MEDS ORDERED: BENZOCAINE 20% TOPICAL SPRAY 60 ML CAN TOPICAL PRN (23:45)
[2017-10-03] MEDS ORDERED: SODIUM CHLORIDE 0.9% FLUSH 10 ML FLUSH IV FLUSH SCH (23:45)
[2017-10-03] MEDS ORDERED: ACETAMINOPHEN 325 MG TAB PO PRN (23:45)
[2017-10-03] MEDS ORDERED: SODIUM CHLORIDE 0.9% FLUSH 10 ML FLUSH IV FLUSH PRN (23:45)
[2017-10-03] MEDS ORDERED: ZOLPIDEM TARTRATE 5 MG TAB PO PRN (23:45)
[2017-10-03] MEDS ORDERED: DOCUSATE SODIUM 50 MG/SENNA 8.6 MG TAB PO PRN (23:45)
[2017-10-03] MEDS ORDERED: ALUMINUM/MAGNESIUM/SIMETH 30 ML CUP PO PRN (23:45)
[2017-10-03 23:52] LABS: BILIRUBIN, URINE NEG (NEG); BLOOD, URINE SMALL (NEG); GLUCOSE,URINE NEG (NEG); KETONE, URINE 40 mg/dL (NEG); MUCUS URINE FEW /lpf (OCC); NITRITE,URINE NEG (NEG); SQUAMOUS EPITHELIAL CELL URINE 3 /hpf (0-5); TRANSITIONAL EPI CELLS, URINE <1 /hpf; URINE COLOR YELLOW (YELLW/STRAW); URINE LEUKOCYTE ESTERASE MOD (NEG)
[2017-10-04] MEDS: IBUPROFEN 800 MG TAB PO PRN ×2 (00:06→10:58)
[2017-10-04] MEDS ORDERED: PENICILLIN G POTASSIUM INJ 2,500,000 UNITS in SODIUM CHLORIDE 0.9% INJ 100 ML IV SCH (03:15)
--- NOTE | 2017-10-04 07:53 | HHI.OB ---
Subjective Post Day: 1 Remarks Patient seen and examined this morning. AFVSS overnight. day #1. Patient states her pain has been tolerable. Decreased lochia. Denies dysuria. No breast tenderness. Appetite good. No nausea or vomiting. Ambulating well. Denies fevers or chills, calf pain, shortness of breath, or cough. She otherwise has no other complaints or concerns this morning. (Kevin Fitzpatrick MD R2) Remarks Patient seen and evaluated with resident under direct supervision, agree with assessment and plan. (Tomas Cameron MD) Objective Objective Remarks GENERAL: Well-nourished, well-developed patient. CARDIOVASCULAR: Regular rate and rhythm without murmurs, gallops, or rubs. RESPIRATORY: Breath sounds equal bilaterally. No accessory muscle use. ABDOMEN/GI: Abdomen soft, non-tender. Fundus: Firm, non-tender at umbilicus. GENITOURINARY: Light to moderate bleeding. EXTREMITIES: No cyanosis or edema, non-tender, without signs of DVT. Medications and IVs Current Medications Medications (Trade) Dose Ordered Sig/Vesta Route Start Time Stop Time Status Last Admin Lactated Ringer's 1,000 ml @ 3,000 mls/hr Q20M PRN IV 10/03/17 23:01 10/04/17 00:07 Sodium Chloride 1,000 ml @ 100 mls/hr Q10H PRN IV 10/03/17 23:21 (Xylocaine 1% Inj (50 ml)) 0.1 ml UNSCH X1 PRN I-DERMAL 10/03/17 23:15 10/06/17 23:14 (Bicitra Liq) 30 ml CALCINE FURNACE LOADER PO 10/03/17 23:15 10/07/17 23:14 (Xylocaine 1% Inj (50 ml)) 10 ml UNSCH X1 PRN INFIL 10/03/17 23:15 10/05/17 23:14 (Muri-Lube Oil) 10 ml UNSCH PRN TOPICAL 10/03/17 23:15 (NS Flush) 2 ml BID IV FLUSH 10/03/17 23:45 (NS Flush) 2 ml UNSCH PRN IV FLUSH 10/03/17 23:45 (Tylenol) 650 mg Q4H PRN PO 10/03/17 23:45 (Motrin) 800 mg Q8H PRN PO 10/03/17 23:45 10/04/17 00:06 (Percocet 5-325 Mg) 1 tab Q4H PRN PO 10/03/17 23:45 (Percocet 5-325 Mg) 2 tab Q4H PRN PO 10/03/17 23:45 (Americaine 20% Top Spr) 1 spray Q4H PRN TOPICAL 10/03/17 23:45 (Tucks Pads) 1 applic QID PRN TOPICAL 10/03/17 23:45 (Carolyn-Colace) 2 tab Q12H PRN PO 10/03/17 23:45 (Ambien) 5 mg HS PRN PO 10/03/17 23:45 (Mag-Al Plus Susp Liq) 15 ml Q8H PRN PO 10/03/17 23:45 (Zofran Odt) 4 mg Q6H PRN PO 10/03/17 23:45 (Kevin Fitzpatrick MD R2) Assessment/Plan Problem List: (1) care following vaginal delivery ICD Codes: Z39.2 - Encounter for routine follow-up Assessment and Plan 22 year old PPD#1. 1. Care - AFVSS - Encouraged OOB, as tolerated - Motrin or Percocet prn pain - Advised pelvic rest x 6 weeks - Contraception: Discussed with patient this morning, patient desiring Depo- Provera - Will f/u with OB provider in 6 weeks [facility] OB hospitalist Discharge Planning Anticipate discharge home tomorrow pending stable clinical course (Kevin Fitzpatrick MD R2) Kevin Fitzpatrick MD R2 Oct 04, 2017 07:53 Tomas Cameron MD Oct 05, 2017 16:45
[2017-10-04] MEDS ORDERED: medroxyPROGESTERone ACETATE SUSP 150 MG/ML SYRINGE IM ONE (08:30)
[2017-10-05 08:00] VITALS: BP 105/70; PULSE 73; RESP 20; TEMP 98.1; O2SAT 100
--- NOTE | 2017-10-05 10:31 | HHI.OB ---
Subjective Post Day: 2 Remarks day #2. AFVSS overnight. Pain minimal. Decreased lochia. Denies dysuria. No breast tenderness. Appetite good. No nausea or vomiting. Endorses flatus. Endorses bowel movement. Ambulating well. Denies calf pain, shortness of breath, or cough. Otherwise, she is doing well this morning and has no other complaints. Objective Vitals/I&O Vital Signs Date Time Temp Pulse Resp B/P (MAP) Pulse Ox O2 Delivery O2 Flow Rate FiO2 10/05/17 08:00 98.1 73 20 105/70 (82) 100 Objective Remarks GENERAL: Well-nourished, well-developed patient. CARDIOVASCULAR: Regular rate and rhythm without murmurs, gallops, or rubs. RESPIRATORY: Breath sounds equal bilaterally. No accessory muscle use. ABDOMEN/GI: Abdomen soft, non-tender. Fundus: Firm, non-tender at umbilicus. GENITOURINARY: Light to moderate bleeding. EXTREMITIES: No cyanosis or edema, non-tender, without signs of DVT. Medications and IVs Current Medications Medications (Trade) Dose Ordered Sig/Vesta Route Start Time Stop Time Status Last Admin Lactated Ringer's 1,000 ml @ 3,000 mls/hr Q20M PRN IV 10/03/17 23:01 10/04/17 00:07 Sodium Chloride 1,000 ml @ 100 mls/hr Q10H PRN IV 10/03/17 23:21 (Xylocaine 1% Inj (50 ml)) 0.1 ml UNSCH X1 PRN I-DERMAL 10/03/17 23:15 10/06/17 23:14 (Bicitra Liq) 30 ml AMPOULE WASHING MACHINE OPERATOR PO 10/03/17 23:15 10/07/17 23:14 (Xylocaine 1% Inj (50 ml)) 10 ml UNSCH X1 PRN INFIL 10/03/17 23:15 10/05/17 23:14 (Muri-Lube Oil) 10 ml UNSCH PRN TOPICAL 10/03/17 23:15 (NS Flush) 2 ml BID IV FLUSH 10/03/17 23:45 (NS Flush) 2 ml UNSCH PRN IV FLUSH 10/03/17 23:45 (Tylenol) 650 mg Q4H PRN PO 10/03/17 23:45 (Motrin) 800 mg Q8H PRN PO 10/03/17 23:45 10/04/17 10:58 (Percocet 5-325 Mg) 1 tab Q4H PRN PO 10/03/17 23:45 (Percocet 5-325 Mg) 2 tab Q4H PRN PO 10/03/17 23:45 (Americaine 20% Top Spr) 1 spray Q4H PRN TOPICAL 10/03/17 23:45 (Tucks Pads) 1 applic QID PRN TOPICAL 10/03/17 23:45 (Carolyn-Colace) 2 tab Q12H PRN PO 10/03/17 23:45 10/04/17 10:58 (Ambien) 5 mg HS PRN PO 10/03/17 23:45 (Mag-Al Plus Susp Liq) 15 ml Q8H PRN PO 10/03/17 23:45 (Zofran Odt) 4 mg Q6H PRN PO 10/03/17 23:45 Assessment/Plan Problem List: (1) care following vaginal delivery ICD Codes: Z39.2 - Encounter for routine follow-up Assessment and Plan 22 year old PPD#2. 1. Care - AFVSS - Encouraged OOB, as tolerated - Motrin or Percocet prn pain - Advised pelvic rest x 6 weeks - Contraception: Received Depo injection - Will f/u with OB provider in 6 weeks [facility] OB hospitalist Discharge Planning Anticipate discharge home today Asad Vazquez MD R2 Oct 05, 2017 10:31
[2017-10-05] MEDS ORDERED: PERI PO (10:32)
[2017-10-05] MEDS ORDERED: IBUP1TAB7 PO (10:32)
--- NOTE | 2017-10-05 10:33 | HHI.DCPOC ---
Discharge Care Plan Diagnosis: (1) care following vaginal delivery Report Symptoms to Your Doctor -Temperature above 100.5 degrees -Redness, of incision or excessive or foul smelling drainage -Unusual pain or calf pain -Increased vaginal bleeding -Painful or difficulty urinating -Feelings of extreme sadness or anxiety after 2 weeks Goals to Promote Your Health * To prevent worsening of your condition and complications * To maintain your health at the optimal level Directions to Meet Your Goals Take your medications as prescribed Follow your dietary instruction Follow activity as directed Ensure plenty of rest for recovery Drink fluids for hydration Keep your appointments as scheduled Take your immunizations and boosters as scheduled If your symptoms worsen call your PCP, if no PCP go to Urgent Care Center or Emergency Room Smoking is Dangerous to Your Health. Avoid second hand smoke Call the 24-hour crisis hotline for domestic abuse at Asad Vazquez MD R2 Oct 05, 2017 10:33
== END 2017-10-05 20:20 | disposition home or self-care (01) | DRG 775 ==
LOC: HOBED 22:22 → H2EB 22:54 → H1EA 10-04 00:59
PROVIDERS: ADMIT Obstetrics & Gynecology; ATTEND Obstetrics & Gynecology
PROC: 10E0XZZ Delivery of Products of Conception, External Approach (ICD-10-PCS; principal; 2017-10-03)
DX: O99.824 Streptococcus B carrier state complicating childbirth (principal); O77.0 Labor and delivery complicated by meconium in amniotic fluid; O62.3 Precipitate labor; O69.81X0 Labor and delivery complicated by cord around neck, without compression, not applicable or unspecified; Z37.0 Single live birth; Z3A.38 38 weeks gestation of pregnancy
CPT/HCPCS: 59025; 80307; 81001; 84112; 85025; 86900; 86901; 87086; 90715; G0481; J1050; J2590; J7120